=== PATIENT | female | born 1965 | race Caucasian/White ===

== ENCOUNTER 2021-08-05 14:39 | Emergency (ER) | payer OTHER, SELFPAY ==
[2021-08-05] VITALS (8 sets, daily range): BP systolic 135–172; BP diastolic 83–111; PULSE 77–88; RESP 18–23; TEMP 36.7–36.8; O2SAT 96–100; BMI 28.3
--- NOTE | 2021-08-05 14:45 | ECG_ITS ---
[facility] Test Date: 2021-08-05 Pat Name: Rose Marie Saunders Department: Room: Gender: Female Tester Operator: : 1965 Requested By: Sergei Stahl Order Number: [id number] Rebeca MD: Stu Mendez M.D. Measurements Intervals [place] Rate: 84 P: 38 AL: 158 QRS: 11 QRSD: 86 T: 1 QT: 390 QTc: 463 Interpretive Statements SINUS RHYTHM No previous ECG available for comparison Electronically Signed On 08-05-2021 19:26:10 CDT by Stu Mendez M.D. [id number]
--- NOTE | 2021-08-05 14:45 | XRR_ITS ---
PROCEDURE INFORMATION: Exam: XR Chest Exam date and time: 08/05/2021 3:13 PM Age: 55 years old Clinical indication: Pain; Chest pressure; Additional info: Chest pain TECHNIQUE: Imaging protocol: XR of the chest. Views: 1 view. COMPARISON: No relevant prior studies available. FINDINGS: Lungs: Unremarkable. No consolidation. Pleural spaces: Unremarkable. No pleural effusion. No pneumothorax. Heart/Mediastinum: Unremarkable. No cardiomegaly. Bones/joints: Unremarkable. XR/XR chest 1V portable [id number] IMPRESSION: No acute findings.
[2021-08-05] MEDS: aspirin 81 mg Chew Tablet 324 MG PO (14:50)
[2021-08-05] MEDS: fentaNYL 50 mcg/mL INJ 2mL IVP (14:56)
[2021-08-05] MEDS: famotidine 20 mg/2 mL INJ IVP (14:56)
--- NOTE | 2021-08-05 14:56 | ED_ITS ---
Documented by User: Sergei Stahl DO 08/05/21 15:00 HPI - Chest Pain General: Chief Complaint: Chest Pain Stated Complaint: chest pain Time Seen by Provider: 08/05/21 14:44 History of Present Illness: 55-year-old female presents with epigastric/lower chest pain that radiates from the right to left ribs across the whole epigastric region. She reports that started about 2 hours ago. That took her an hour to drive and here is what white just 1 to be seen. She has some mild nausea no vomiting. No diaphoresis no radiation of the pain. It is kind of a sharp stabbing crampy pain. Nothing seems to make it worse or better. Is persistent. Associated symptoms: Reports abdominal pain and nausea; Deny dyspnea, fever(s), palpitations or vomiting Review of Systems Const: Denies: fever(s) or chills Card: Reports: chest pain; Denies: palpitations, irregular heart rhythm or lightheadedness Resp: Denies: dyspnea, productive cough or non-productive cough GI: Reports: abdominal pain and nausea; Denies: vomiting, diarrhea or constipation Musc: Denies: neck pain or back pain Skin/Breast: Denies: rash Neuro: Denies: headache(s) or numbness in extremities Psych: Denies: anxiety or depression Physical Exam Const: COMMON NORMALS: patient oriented x3 GENERAL APPEARANCE: well kempt and other (Uncomfortable) HENMT: COMMON NORMALS: normocephalic and moist oral mucous membranes HEAD & SCALP: normocephalic Neck/C-Spine: COMMON NORMALS: full ROM, supple and no JVD Resp: COMMON NORMALS: normal respiratory effort, No retractions, No use of accessory muscles and clear to auscultation bilaterally AUSCULTATION: clear to auscultation bilaterally Cardio: COMMON NORMALS: no JVD, regular rate, regular rhythm and Peripheral pulses 2+ throughout RATE: regular rate RHYTHM: regular rhythm PERIPHERAL PULSES: Peripheral pulses 2+ throughout GI: COMMON NORMALS: Soft to palpation PALPATION: Yes Soft to palpation and Yes Tenderness to palpation present (GI) (Epigastric) : COMMON NORMALS: Yes no CVA tenderness BLADDER/KIDNEY EXAM: Yes no CVA tenderness Back/Pelvis: COMMON NORMALS: no CVA tenderness Extremity: COMMON NORMALS: normal to inspection and full ROM Neuro: COMMON NORMALS: patient oriented x3, CN's II-XII intact bilaterally and no focal motor deficits Psych: COMMON NORMALS: mental status grossly normal, cooperative and normal affect APPEARANCE: Yes well kempt Skin: COMMON NORMALS: no rashes or lesions noted GENERAL SKIN EXAM: no rashes or lesions noted Course Vital Signs: Vital signs: Vital Signs Temperature 98.1 F 08/05/21 19:08 Pulse Rate 88 08/05/21 19:08 Respiratory Rate 18 08/05/21 19:08 Blood Pressure 164/111 08/05/21 19:08 Pulse Oximetry 96 08/05/21 19:08 MDM - Chest Pain Lab Data : 08/05/21 15:00 08/05/21 15:00 Radiology Impressions Chest X-Ray 08/05/21 14:45 IMPRESSION: No acute findings. Abdomen Ultrasound 08/05/21 16:17 IMPRESSION: Mild fatty infiltration of the liver. Laboratory Results WBC 11.2 10^3/uL (4.0-10.0) H 08/05/21 15:00 RBC 4.74 10^6/uL (4.1-5.3) 08/05/21 15:00 Hgb 13.9 g/dL (11.5-15.3) 08/05/21 15:00 Hct 43.0 % (37.0-47.0) 08/05/21 15:00 MCV 90.7 fl (81-99) 08/05/21 15:00 MCH 29.3 pg (28.0-34.0) 08/05/21 15:00 MCHC 32.3 g/dL (30.0-36.0) 08/05/21 15:00 RDW 12.7 % (12.1-15.1) 08/05/21 15:00 Plt Count 245 10^3/cmm (130-400) 08/05/21 15:00 MPV 11.4 fL (7.4-10.4) H 08/05/21 15:00 Neut % (Auto) 73.8 % 08/05/21 15:00 Lymph % (Auto) 18.5 % 08/05/21 15:00 Mayes % (Auto) 5.6 % 08/05/21 15:00 Eos % (Auto) 1.3 % 08/05/21 15:00 Baso % (Auto) 0.4 % 08/05/21 15:00 Neut # (Auto) 8.25 10^3/uL (1.8-7.7) H 08/05/21 15:00 Lymph # (Auto) 2.1 10^3/uL (0.8-4.8) 08/05/21 15:00 Mayes # (Auto) 0.6 10^3/uL (0.2-0.9) 08/05/21 15:00 Eos # (Auto) 0.2 10^3/uL (0.0-0.8) 08/05/21 15:00 Baso # (Auto) 0.0 10^3/uL (0.0-0.1) 08/05/21 15:00 Nucleated RBC % (auto) 0 % 08/05/21 15:00 Nucleated RBCs # 0.0 /100WBC 08/05/21 15:00 Sodium 139 mmol/L (136-145) 08/05/21 15:00 Potassium 3.5 mmol/L (3.5-5.1) 08/05/21 15:00 Chloride 101 mmol/L (98-107) 08/05/21 15:00 Carbon Dioxide 21 mmol/L (22-29) L 08/05/21 15:00 Anion Gap 20.5 (5-19) H 08/05/21 15:00 BUN 11 mg/dL (6-20) 08/05/21 15:00 Creatinine 0.7 mg/dL (0.5-0.9) 08/05/21 15:00 GFR Calculation 86.2 mL/min (90-130) L 08/05/21 15:00 Glucose 121 mg/dL (65-115) H 08/05/21 15:00 Calculated Osmolality 289 mOsm/kg (285-295) 08/05/21 15:00 Calcium 9.2 mg/dL (8.5-10.5) 08/05/21 15:00 Total Bilirubin 0.9 mg/dL (0.15-1.2) 08/05/21 15:00 AST 86 U/L (0-32) H 08/05/21 15:00 ALT 70 U/L (0-33) H 08/05/21 15:00 Alkaline Phosphatase 116 IU/L (35-105) H 08/05/21 15:00 Troponin T Baseline 6 ng/L (0-10) 08/05/21 15:00 Troponin T 120 Minute 6.00 ng/L (0-10) 08/05/21 17:30 Delta Troponin T 0 ABS# (0-10) 08/05/21 17:30 Total Protein 7.7 g/dL (6.6-8.7) 08/05/21 15:00 Albumin 4.7 g/dL (3.5-5.2) 08/05/21 15:00 Globulin 3.0 g/dL (1.3-4.6) 08/05/21 15:00 Lipase 55 U/L (13-60) 08/05/21 15:00 Discharge Plan Discharge Patient Disposition: Home Clinical Impression: Abdominal pain, epigastric Condition: Stable Prescriptions: New Prevacid 30 mg capsule,delayed release(DR/EC) 30 mg PO DAILY Qty: 30 0RF No Action aspirin 81 mg Tablet,Chewable 81 mg PO DAILY 0RF Discharge Orders: Discharge ED (Routine); Ordered 08/05/21 Ordered By: Jarek Grajeda Patient Instructions: Abdominal Pain (ED) Activity Restrictions/Additional Instructions: Return for worsening pain despite treatment, vomiting liquids or medications, worsening shortness of breath, other concerning symptoms. Follow-up with your doctor, as they may wish to run other outpatient tests. Coding Level of Care Code ED Insurance Account Executive for Chg Fwd Exam Comprehensive Documented by User: Jarek Grajeda DO 08/05/21 19:21 HPI - Chest Pain General: Chief Complaint: Chest Pain Stated Complaint: chest pain Time Seen by Provider: 08/05/21 14:44 Course Vital Signs: Vital signs: Vital Signs Temperature 98.1 F 08/05/21 19:08 Pulse Rate 88 08/05/21 19:08 Respiratory Rate 18 08/05/21 19:08 Blood Pressure 164/111 08/05/21 19:08 Pulse Oximetry 96 08/05/21 19:08 [facility] - Chest Pain Medical Decision Making 50-year-old female checked out to me at shift change by Dr. Stahl. This lady has epigastric/lower chest pain. She continues to have some pain despite GI cocktail. Her white blood cell count is 11.2. Her BMP is normal. Her liver enzymes are minimally elevated. Her troponin is 6. She has 2 completely normal EKGs. Her 2-hour delta is 0. Her chest x-ray is normal. Her gallbladder ultrasound is normal including a normal-appearing pancreas and no dilated ducts. She is nontachycardic. Saturations are 100% on room air. She will be allowed discharge. Outpatient follow-up. Lab Data : 08/05/21 15:00 08/05/21 15:00 Radiology Impressions Chest X-Ray 08/05/21 14:45 IMPRESSION: No acute findings. Abdomen Ultrasound 08/05/21 16:17 IMPRESSION: Mild fatty infiltration of the liver. Laboratory Results WBC 11.2 10^3/uL (4.0-10.0) H 08/05/21 15:00 RBC 4.74 10^6/uL (4.1-5.3) 08/05/21 15:00 Hgb 13.9 g/dL (11.5-15.3) 08/05/21 15:00 Hct 43.0 % (37.0-47.0) 08/05/21 15:00 MCV 90.7 fl (81-99) 08/05/21 15:00 MCH 29.3 pg (28.0-34.0) 08/05/21 15:00 MCHC 32.3 g/dL (30.0-36.0) 08/05/21 15:00 RDW 12.7 % (12.1-15.1) 08/05/21 15:00 Plt Count 245 10^3/cmm (130-400) 08/05/21 15:00 MPV 11.4 fL (7.4-10.4) H 08/05/21 15:00 Neut % (Auto) 73.8 % 08/05/21 15:00 Lymph % (Auto) 18.5 % 08/05/21 15:00 Mayes % (Auto) 5.6 % 08/05/21 15:00 Eos % (Auto) 1.3 % 08/05/21 15:00 Baso % (Auto) 0.4 % 08/05/21 15:00 Neut # (Auto) 8.25 10^3/uL (1.8-7.7) H 08/05/21 15:00 Lymph # (Auto) 2.1 10^3/uL (0.8-4.8) 08/05/21 15:00 Mayes # (Auto) 0.6 10^3/uL (0.2-0.9) 08/05/21 15:00 Eos # (Auto) 0.2 10^3/uL (0.0-0.8) 08/05/21 15:00 Baso # (Auto) 0.0 10^3/uL (0.0-0.1) 08/05/21 15:00 Nucleated RBC % (auto) 0 % 08/05/21 15:00 Nucleated RBCs # 0.0 /100WBC 08/05/21 15:00 Sodium 139 mmol/L (136-145) 08/05/21 15:00 Potassium 3.5 mmol/L (3.5-5.1) 08/05/21 15:00 Chloride 101 mmol/L (98-107) 08/05/21 15:00 Carbon Dioxide 21 mmol/L (22-29) L 08/05/21 15:00 Anion Gap 20.5 (5-19) H 08/05/21 15:00 BUN 11 mg/dL (6-20) 08/05/21 15:00 Creatinine 0.7 mg/dL (0.5-0.9) 08/05/21 15:00 GFR Calculation 86.2 mL/min (90-130) L 08/05/21 15:00 Glucose 121 mg/dL (65-115) H 08/05/21 15:00 Calculated Osmolality 289 mOsm/kg (285-295) 08/05/21 15:00 Calcium 9.2 mg/dL (8.5-10.5) 08/05/21 15:00 Total Bilirubin 0.9 mg/dL (0.15-1.2) 08/05/21 15:00 AST 86 U/L (0-32) H 08/05/21 15:00 ALT 70 U/L (0-33) H 08/05/21 15:00 Alkaline Phosphatase 116 IU/L (35-105) H 08/05/21 15:00 Troponin T Baseline 6 ng/L (0-10) 08/05/21 15:00 Troponin T 120 Minute 6.00 ng/L (0-10) 08/05/21 17:30 Delta Troponin T 0 ABS# (0-10) 08/05/21 17:30 Total Protein 7.7 g/dL (6.6-8.7) 08/05/21 15:00 Albumin 4.7 g/dL (3.5-5.2) 08/05/21 15:00 Globulin 3.0 g/dL (1.3-4.6) 08/05/21 15:00 Lipase 55 U/L (13-60) 08/05/21 15:00 Discharge Plan Discharge Patient Disposition: Home Clinical Impression: Abdominal pain, epigastric Condition: Stable Prescriptions: New Prevacid 30 mg capsule,delayed release(DR/EC) 30 mg PO DAILY Qty: 30 0RF No Action aspirin 81 mg Tablet,Chewable 81 mg PO DAILY 0RF Discharge Orders: Discharge ED (Routine); Ordered 08/05/21 Ordered By: Jarek Grajeda Patient Instructions: Abdominal Pain (ED) Activity Restrictions/Additional Instructions: Return for worsening pain despite treatment, vomiting liquids or medications, worsening shortness of breath, other concerning symptoms. Follow-up with your doctor, as they may wish to run other outpatient tests. Coding Level of Care Code ED Insurance Account Executive for Misti Fwd Exam Comprehensive
[2021-08-05 15:10] LABS: Basophils % 0.4 %; Eosinophils # 0.2 10^3/uL (0.0-0.8); Eosinophils % 1.3 %; Hemoglobin 13.9 g/dL (11.5-15.3); Lymphocytes # 2.1 10^3/uL (0.8-4.8); Lymphocytes % 18.5 %; Mean Corpuscular HGB Conc 32.3 g/dL (30.0-36.0); Mean Corpuscular Hemoglobin 29.3 pg (28.0-34.0); Mean Corpuscular Volume 90.7 fl (81-99); Mean Platelet Volume 11.4 fL (7.4-10.4); Monocytes # 0.6 10^3/uL (0.2-0.9); Monocytes % 5.6 %; Neutrophils # 8.25 10^3/uL (1.8-7.7); Neutrophils % 73.8 %; Nucleated Red Blood Cells % 0 %; Platelet Count 245 10^3/cmm (130-400); Red Blood Count 4.74 10^6/uL (4.1-5.3); Red Cell Distribution Width 12.7 % (12.1-15.1); White Blood Count 11.2 10^3/uL (4.0-10.0)
[2021-08-05 15:36] LABS: Troponin(5th) Baseline 6 ng/L (0-10)
[2021-08-05 15:56] LABS: Alanine Aminotransferase 70 U/L (0-33); Albumin Level 4.7 g/dL (3.5-5.2); Alkaline Phosphatase 116 IU/L (35-105); Aspartate Amino Transferase 86 U/L (0-32); Blood Urea Nitrogen 11 mg/dL (6-20); Calcium 9.2 mg/dL (8.5-10.5); Carbon Dioxide 21 mmol/L (22-29); Chloride 101 mmol/L (98-107); Glomerular Filtration Rate 86.2 mL/min (90-130); Glucose 121 mg/dL (65-115); Lipase 55 U/L (13-60); Osmolality Calculated 289 mOsm/kg (285-295); Sodium 139 mmol/L (136-145); Total Bilirubin 0.9 mg/dL (0.15-1.2); Total Protein 7.7 g/dL (6.6-8.7)
[2021-08-05 16:00] LABS: Anion Gap 20.5 (5-19); Potassium 3.5 mmol/L (3.5-5.1)
--- NOTE | 2021-08-05 16:17 | USR_ITS ---
PROCEDURE INFORMATION: Exam: US Abdomen, Limited; Right Upper Quadrant Exam date and time: 08/05/2021 4:28 PM Age: 55 years old Clinical indication: Other: Chest pain; Additional info: Gallbladder TECHNIQUE: Imaging protocol: US abdomen. Real time ultrasound with image documentation. Limited exam focused on the right upper quadrant. COMPARISON: No relevant prior studies available. FINDINGS: Liver: Mildly increased echotexture in the liver, consistent with mild fatty infiltration. Gallbladder: The gallbladder is unremarkable. No gallstones or intraluminal sludge. No gallbladder wall thickening. No pericholecystic fluid. Sonographic Mayer's sign is negative per report from the photo technologist. Common bile duct: Unremarkable as visualized. No stones. No dilatation. Pancreas: The pancreas is unremarkable. No pancreatic ductal dilatation. Right kidney: The right kidney is unremarkable. Aorta: Visualized aorta is unremarkable. Portal venous: Hepatopetal flow in the portal vein. Inferior vena cava: Visualized IVC is unremarkable. Intraperitoneal space: No ascites. US/US abdomen limited [id number] IMPRESSION: Mild fatty infiltration of the liver.
--- NOTE | 2021-08-05 16:45 | ECG_ITS ---
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 Measurements Intervals [place] Rate: 83 P: 64 [place]: 157 QRS: 39 QRSD: 82 T: 23 QT: 378 QTc: 447 Interpretive Statements SINUS RHYTHM Compared to ECG 08/05/2021 14:49:37 No significant changes Electronically Signed On 08-05-2021 19:31:46 CDT by Stu Mendez M.D. [id number]
[2021-08-05] MEDS: lidocaine 2% viscous 15 ML, aluminum-mag hydrox-simethicon 30 ML, sucralfate oral liq 1 GM PO (17:24)
[2021-08-05] MEDS: ketorolac 30 mg/mL INJ 15 MG IVP (17:43)
--- NOTE | 2021-08-05 18:08 | PC.HD ---
EKG done, troponin pending.
[2021-08-05 18:28] LABS: Troponin 5 2HR Delta 0 ABS# (0-10)
[2021-08-05] MEDS: ondansetron 2 mg/ML SDV 2 mL 4 MG IVP (19:01)
[2021-08-05] MEDS: morphine 4 mg/mL SDV 1 mL IVP (19:01)
--- NOTE | 2021-08-09 14:45 | DCPLANNER ---
hospice case manager had message to speak with patient about getting established with a primary care physician. hospice case manager spoke with patient, she stated that she would like to be established at the [facility]. hospice case manager called the [facility], was told that the best thing for patient to do is to go the walk in clinic, anytime from 9:00 - 12:30 and 2:00 to 5:00 Friday thru Friday as a walk in for a hospital follow up that patient can be seen and then put on the physicians established care list. hospice case manager called patient and informed patient of this.
== END 2021-08-05 19:27 | disposition home or self-care (01) ==
PROVIDERS: Student in an Organized Health Care Education/Training Program; Emergency Provider Emergency Medicine
DX: R10.13 Epigastric pain (principal); Z79.82 Long term (current) use of aspirin
CPT/HCPCS: 71045; 76705; 80053; 83690; 84484; 85025; 93005; 96374; 96375; 99284; J1885; J2270; J2405; J3010; J3490

== ENCOUNTER 2022-07-23 11:41 | Emergency (ER) | payer OTHER, SELFPAY ==
[2022-07-23 11:47] VITALS: BP 161/81; PULSE 85; RESP 16; TEMP 36.7; O2SAT 98
--- NOTE | 2022-07-23 12:03 | XR_ITS ---
WS: [id number] EXAMINATION: XR chest 1V portable [id number] REASON FOR EXAM: dizziness COMPARISON: 08/05/2021 ORDER DATE: 07/23/2022 12:11 PM TECHNIQUE: A single, portable frontal chest x-ray was obtained. X-RAY FINDINGS: The lungs are clear. Pleural spaces are clear. No pleural effusions or pneumothorax. Cardiomediastinal silhouette is normal. No evidence for pulmonary edema. Soft tissue and osseous structures are unremarkable. No tubes or lines are present. XR/XR chest 1V portable [id number] IMPRESSION: Unremarkable frontal portable chest x-ray.
--- NOTE | 2022-07-23 12:03 | CT_ITS ---
WS: [id number] CT HEAD TECHNIQUE: Noncontrast CT of the head obtained from the skullbase to the vertex. CLINICAL INFORMATION: Dizziness and balance issues COMPARISON: None. DLP: 986.[address] scans at [facility] use at least one of these dose optimization techniques: automated e xposure control; mA and/or kV adjustment per patient size (includes targeted exams where dose is matc hed to clinical indication); or iterative reconstruction. FINDINGS: No evidence of intracranial hemorrhage or mass effect. Ventricular system and basal cisterns are perez nt. Mild small vessel changes with mild parenchymal volume loss. No extra-axial fluid collections. No evidence of mass or mass effect. Normal zamora-white differentiation. Paranasal sinuses and mastoid air cells are well aerated. .Normal visualized soft tissues. CT/CT head wo con* [id number] IMPRESSION: 1. No evidence of intracranial hemorrhage or mass effect. 2. Mild small vessel changes. Mild parenchymal volume loss. 3. No acute intracranial findings.
--- NOTE | 2022-07-23 12:23 | ED_ITS ---
Documented by User: DAI Trent 07/24/22 22:22 HPI - Dizziness General: Chief Complaint: Dizziness Stated Complaint: Dizziness, N/V Time Seen by Provider: 07/23/22 12:03 History of Present Illness: HPI Narrative: Patient is a 56-year-old female comes to the ED with dizziness. Patient said 2 days ago she had an episode when she was doing her hair she felt like she lost her balance and the floor and sink were moving upwards. She denies falling or hitting her head at that time. Symptoms went away after a few minutes and she felt fine the rest of the day. Yesterday she woke up and was having a lot more dizziness. She describes it as feeling more off balance, rather than room spinning. Symptoms worsen when she turns her head to the left or left to the left. She had episodes of nausea and vomiting. Any quick movements made symptoms worse as well. Denies any chest pain, shortness of breath or palpitations. Patient did endorse having some tingling sensation throughout her extremities bilaterally but states she was starting to hyperventilate a little bit before the symptoms started. Denies any past similar episodes. No history of strokes. Denies any recent medication changes and patient just takes a daily aspirin. Associated symptoms: Denies chest pain, chills, headache(s), nausea, nasal congestion, palpitations or vomiting Associated neuro symptoms: Deny numbness in extremities Review of Systems Const: Denies: fever(s), chills or fatigue Eyes: Denies: change in vision or eye discomfort ENMT: Denies: throat pain, odynophagia, nasal discharge or nasal congestion Card: Denies: chest pain, palpitations, edema, swelling of feet/ankles, dyspnea on exertion or orthopnea Resp: Denies: dyspnea, productive cough or non-productive cough GI: Denies: abdominal pain, nausea, vomiting, diarrhea, constipation or hemato chezia : Denies: flank pain, dysuria or hematuria Musc: Denies: neck pain, back pain or extremity swelling Skin/Breast: Denies: rash or new lesions Neuro: Reports: dizziness and vertigo; Denies: headache(s), numbness in extremities or weakness in extremities PFS ED PFSH: Medical History (Updated 07/23/22 @ 14:26 by DAI Trent) No pertinent past medical history Surgical History (Updated 07/23/22 @ 12:34 by DAI Trent) No pertinent past surgical history Physical Exam Const: COMMON NORMALS: patient oriented x3 HENMT: COMMON NORMALS: normocephalic HEAD & SCALP: normocephalic MOUTH: Normal oral and palatal mucosa present THROAT: posterior oropharynx normal and uvula midline Eye: COMMON NORMALS: Equal, round and reactive pupils present and EOMs intact bilaterally GENERAL EYE: appearance normal, both eyes and all related structures PUPIL: Yes Equal, round and reactive pupils present Neck/C-Spine: COMMON NORMALS: supple GENERAL: Yes normal visual inspection Lymph: LYMPHATIC: no lymphadenopathy noted Resp: COMMON NORMALS: normal respiratory effort, No retractions, No use of a ccessory muscles and clear to auscultation bilaterally AUSCULTATION: clear to auscultation bilaterally Cardio: COMMON NORMALS: regular rate, regular rhythm, S1 normal heart sound present, S2 normal heart sound present, No gallops present (Cardio), No clicks present (Cardio), No murmurs present (Cardio) and Peripheral pulses 2+ throughout RATE: regular rate RHYTHM: regular rhythm HEART SOUNDS: S1 normal heart sound present and S2 normal heart sound present PERIPHERAL PULSES: Peripheral pulses 2+ throughout GI: COMMON NORMALS: Normal to inspection, nondistended, normoactive bowel sounds present, Soft to palpation, non-tender and no masses PALPATION: Yes Soft to palpation : COMMON NORMALS: Yes no CVA tenderness BLADDER/KIDNEY EXAM: Yes no CVA tenderness Back/Pelvis: COMMON NORMALS: no CVA tenderness Extremity: GENERAL: Yes normal exam except as noted Neuro: COMMON NORMALS: patient oriented x3, CN's II-XII intact bilaterally, moves all extremities, no focal motor deficits and no sensory deficits noted SENSORY EXAM: Yes extremities (intact) MOTOR EXAM: 5/5 motor strength present throughout Skin: COMMON NORMALS: no rashes or lesions noted GENERAL SKIN EXAM: no rashes or lesions noted and dry skin Course Vital Signs: Vital signs: Vital Signs Temperature 98.1 F 07/23/22 11:47 Pulse Rate 79 07/23/22 14:34 Respiratory Rate 23 H 07/23/22 12:33 Blood Pressure 144/90 07/23/22 14:34 Pulse Oximetry 96 07/23/22 14:34 Oxygen Delivery Me thod Room Air 07/23/22 13:30 MDM - Dizziness Medical Decision Making Patient is a 56-year-old female comes to the ED with dizziness. Patient said 2 days ago she had an episode when she was doing her hair she felt like she lost her balance and the floor and sink were moving upwards. She denies falling or hitting her head at that time. Symptoms went away after a few minutes and she felt fine the rest of the day. Yesterday she woke up and was having a lot more dizziness. She describes it as feeling more off balance, rather than room spinning. Symptoms worsen when she turns her head to the left or left to the left. She had episodes of nausea and vomiting. Any quick movements made symptoms worse as well. Denies any chest pain, shortness of breath or palpitations. Patient did endorse having some tingling sensation throughout her extremities bilaterally but states she was starting to hyperventilate a little bit before the symptoms started. Denies any past similar episodes. No history of strokes. Denies any recent medication changes and patient just takes a daily aspirin. Vitals are stable. Exam is benign and neuro exam shows no deficits. Troponin negative. EKG showed normal sinus rhythm with no ST segment elevation or depression seen. CBC and CMP are unremarkable. Chest x-ray shows no acute findings and head CT shows no acute findings. Given patient's history and exam findings symptoms is likely due to BPPV. She was stable for discharge home and sent home with exercise instructions to manage BPPV. She is also on with a prescription for meclizine help with dizziness. Follow-up with PCP in the next week for reevaluation. Patient understood agree with plan. Dr. Reeves reviewed case and agreed with plan as well. Lab Data I reviewed the patient's lab results. 07/23/22 12:22 07/23/22 12:22 Radiology Impressions Chest X-Ray 07/23/22 12:03 IMPRESSION: Unremarkable frontal portable chest x-ray. Head CT 07/23/22 12:03 IMPRESSION: 1. No evidence of intracranial hemorrhage or mass effect. 2. Mild small vessel changes. Mild parenchymal volume loss. 3. No acute intracranial findings. Laboratory Results WBC 9.6 10^3/uL (4.0-10.0) 07/23/22 12:22 RBC 4.81 10^6/uL (4.1-5.3) 07/23/22 12: Hgb 14.3 g/dL (11.5-15.3) 07/23/22 12:22 Hct 44.2 % (37.0-47.0) 07/23/22 12:22 MCV 91.9 fl (81-99) 07/23/22 12:22 MCH 29.7 pg (28.0-34.0) 07/23/22 12: MCHC 32.4 g/dL (30.0-36.0) 07/23/22 12: RDW 13.1 % (12.1-15.1) 07/23/22 12:22 Plt Count 241 10^3/cmm (130-400) 07/23/22 12: MPV 11.1 fL (7.4-10.4) H 07/23/22 12: Neut % (Auto) 78.8 % 07/23/22 12: Lymph % (Auto) 16.1 % 07/23/22 12: Bath % (Auto) 4.3 % 07/23/22 12:22 Eos % (Auto) 0.3 % 07/23/22 12: Baso % (Auto) 0.2 % 07/23/22 12: Neut # (Auto) 7.56 10^3/uL (1.8-7.7) 07/23/22 12: Lymph # (Auto) 1.5 10^3/uL (0.8-4.8) 07/23/22 12: Bath # (Auto) 0.4 10^3/uL (0.2-0.9) 07/23/22 12:22 Eos # (Auto) 0.0 10^3/uL (0.0-0.8) 07/23/22 12: Baso # (Auto) 0.0 10^3/uL (0.0-0.1) 07/23/22 12: Nucleated RBC % (auto) 0 % 07/23/22 12: Nucleated RBCs # 0.0 /100WBC 07/23/22 12:22 Sodium 139 mmol/L (136-145) 07/23/22 12:22 Potassium 4.3 mmol/L (3.5-5.1) 07/23/22 12:22 Chloride 104 mmol/L (98-107) 07/23/22 12:22 Carbon Dioxide 23 mmol/L (22-29) 07/23/22 12:22 Anion Gap 16.3 (5-19) 07/23/22 12:22 BUN 10 mg/dL (6-20) 07/23/22 12:22 Creatinine 0.6 mg/dL (0.5-0.9) 07/23/22 12:22 GFR Calculation 102.7 mL/min (90-130) 07/23/22 12:22 Glucose 106 mg/dL (65-115) 07/23/22 12:22 POC Glucose 111 mg/dL (70-110) H 07/23/22 12:22 Calculated Osmolality 287 mOsm/kg (285-295) 07/23/22 12:22 Calcium 9.3 mg/dL (8.5-10.5) 07/23/22 12:22 Total Bilirubin 0.4 mg/dL (0.15-1.2) 07/23/22 12:22 AST 23 U/L (0-32) 07/23/22 12:22 ALT 35 U/L (0-33) H 07/23/22 12:22 Alkaline Phosphatase 78 U/L (35-105) 07/23/22 12:22 Troponin T Baseline 6 ng/L (0-10) 07/23/22 12:22 NT-Pro-B Natriuret Pep 90 pg/mL (0-125) 07/23/22 12:22 Total Protein 8.1 g/dL (6.6-8.7) 07/23/22 12:22 Albumin 4.2 g/dL (3.5-5.2) 07/23/22 12:22 Globulin 3.9 g/dL (1.3-4.6) 07/23/22 12:22 EKG Data EKG 1: EKG interpretation date: 07/23/22 Interpretation: Sinus rhythm, 76 bpm, no ST segment elevation or depression seen. Discharge Plan Discharge Patient Disposition: Home Clinical Impression: Benign paroxysmal positional vertigo Qualifiers: Laterality: unspecified laterality Qualified Code(s): H81.10 - Benign paroxysmal vertigo, unspecified ear Condition: Stable Prescriptions: New meclizine 25 mg tablet 25 mg PO BID PRN (Reason: dizziness) Qty: 20 0RF No Action aspirin 81 mg Tablet,Chewable 81 mg PO DAILY multivitamin Tablet 1 tab PO DAILY Discharge Orders: Discharge ED (Routine); Ordered 07/23/22 Ordered By: Brock Ford Discharge Diet: Regular Discharge Activity: Increase activity as tolerated Patient Instructions: Benign Paroxysmal Positional Vertigo (DC) Activity Restrictions/Additional Instructions: Follow-up with medical provider as directed in the next 5 to 7 days for reevaluation. Take medications as prescribed. Return to the ER or your medical provider if condition worsens. Please read and understand discharge instructions. Thank you for choosing [facility] for your healthcare needs today. Please realize this is an emergency room and that we are providing you with a medical screening exam and this may not be complete and all inclusive of all the testing and or work up that you may need to determine your ailment or severity of your illness. It is very important that you follow up as instructed or that you return to the Emergency Department should you have concerns or if your condition changes or worsens in any way. Coding Level of Care Code ED Blasting Coal Miner for Chg Fwd Documented by User: Suresh Law DO 07/25/22 06:09 HPI - Dizziness General: Chief Complaint: Dizziness Stated Complaint: Dizziness, N/V Time Seen by Provider: 07/23/22 12:03 [facility] ED PFSH: Medical History (Updated 07/23/22 @ 14:26 by DAI Trent) No pertinent past medical history Surgical History (Updated 07/23/22 @ 12:34 by DAI Trent) No pertinent past surgical history Course Vital Signs: Vital signs: Vital Signs Temperature 98.1 F 07/23/22 11:47 Pulse Rate 79 07/23/22 14:34 Respiratory Rate 23 H 07/23/22 12:33 Blood Pressure 144/90 07/23/22 14:34 Pulse Oximetry 96 07/23/22 14:34 Oxygen Delivery Me thod Room Air 07/23/22 13:30 MDM - Dizziness Medical Decision Making Patient is a 56-year-old female comes to the ED with dizziness. Patient said 2 days ago she had an episode when she was doing her hair she felt like she lost her balance and the floor and sink were moving upwards. She denies falling or hitting her head at that time. Symptoms went away after a few minutes and she felt fine the rest of the day. Yesterday she woke up and was having a lot more dizziness. She describes it as feeling more off balance, rather than room spinning. Symptoms worsen when she turns her head to the left or left to the left. She had episodes of nausea and vomiting. Any quick movements made symptoms worse as well. Denies any chest pain, shortness of breath or palpitations. Patient did endorse having some tingling sensation throughout her extremities bilaterally but states she was starting to hyperventilate a little bit before the symptoms started. Denies any past similar episodes. No history of strokes. Denies any recent medication changes and patient just takes a daily aspirin. Vitals are stable. Exam is benign and neuro exam shows no deficits. Troponin negative. EKG showed normal sinus rhythm with no ST segment elevation or depression seen. CBC and CMP are unremarkable. Chest x-ray shows no acute findings and head CT shows no acute findings. Given patient's history and exam findings symptoms is likely due to BPPV. She was stable for discharge home and sent home with exercise instructions to manage BPPV. She is also on with a prescription for meclizine help with dizziness. Follow-up with PCP in the next week for reevaluation. Patient understood agree with plan. Dr. Reeves re viewed case and agreed with plan as well. Chart reviewed and patient discussed with midlevel. Agree with assessment and plan. Lab Data 07/23/22 12:22 07/23/22 12:22 Radiology Impressions Chest X-Ray 07/23/22 12:03 IMPRESSION: Unremarkable frontal portable chest x-ray. Head CT 07/23/22 12:03 IMPRESSION: 1. No evidence of intracranial hemorrhage or mass effect. 2. Mild small vessel changes. Mild parenchymal volume loss. 3. No acute intracranial findings. Laboratory Results WBC 9.6 10^3/uL (4.0-10.0) 07/23/22 12:22 RBC 4.81 10^6/uL (4.1-5.3) 07/23/22 12: Hgb 14.3 g/dL (11.5-15.3) 07/23/22 12:22 Hct 44.2 % (37.0-47.0) 07/23/22 12:22 MCV 91.9 fl (81-99) 07/23/22 12:22 MCH 29.7 pg (28.0-34.0) 07/23/22 12: MCHC 32.4 g/dL (30.0-36.0) 07/23/22 12: RDW 13.1 % (12.1-15.1) 07/23/22 12: Plt Count 241 10^3/cmm (130-400) 07/23/22 12: MPV 11.1 fL (7.4-10.4) H 07/23/22 12: Neut % (Auto) 78.8 % 07/23/22 12: Lymph % (Auto) 16.1 % 07/23/22 12: Bath % (Auto) 4.3 % 07/23/22 12:22 Eos % (Auto) 0.3 % 07/23/22 12: Baso % (Auto) 0.2 % 07/23/22 12: Neut # (Auto) 7.56 10^3/uL (1.8-7.7) 07/23/22 12: Lymph # (Auto) 1.5 10^3/uL (0.8-4.8) 07/23/22 12: Bath # (Auto) 0.4 10^3/uL (0.2-0.9) 07/23/22 12:22 Eos # (Auto) 0.0 10^3/uL (0.0-0.8) 07/23/22 12: Baso # (Auto) 0.0 10^3/uL (0.0-0.1) 07/23/22 12: Nucleated RBC % (auto) 0 % 07/23/22 12: Nucleated RBCs # 0.0 /100WBC 07/23/22 12:22 Sodium 139 mmol/L (136-145) 07/23/22 12:22 Potassium 4.3 mmol/L (3.5-5.1) 07/23/22 12:22 Chloride 104 mmol/L (98-107) 07/23/22 12:22 Carbon Dioxide 23 mmol/L (22-29) 07/23/22 12:22 Anion Gap 16.3 (5-19) 07/23/22 12:22 BUN 10 mg/dL (6-20) 07/23/22 12:22 Creatinine 0.6 mg/dL (0.5-0.9) 07/23/22 12:22 GFR Calculation 102.7 mL/min (90-130) 07/23/22 12:22 Glucose 106 mg/dL (65-115) 07/23/22 12:22 POC Glucose 111 mg/dL (70-110) H 07/23/22 12:22 Calculated Osmolality 287 mOsm/kg (285-295) 07/23/22 12:22 Calcium 9.3 mg/dL (8.5-10.5) 07/23/22 12:22 Total Bilirubin 0.4 mg/dL (0.15-1.2) 07/23/22 12:22 AST 23 U/L (0-32) 07/23/22 12:22 ALT 35 U/L (0-33) H 07/23/22 12:22 Alkaline Phosphatase 78 U/L (35-105) 07/23/22 12:22 Troponin T Baseline 6 ng/L (0-10) 07/23/22 12:22 NT-Pro-B Natriuret Pep 90 pg/mL (0-125) 07/23/22 12:22 Total Protein 8.1 g/dL (6.6-8.7) 07/23/22 12:22 Albumin 4.2 g/dL (3.5-5.2) 07/23/22 12:22 Globulin 3.9 g/dL (1.3-4.6) 07/23/22 12:22 Discharge Plan Discharge Patient Disposition: Home Clinical Impression: Benign paroxysmal positional vertigo Qualifiers: Laterality: unspecified laterality Qualified Code(s): H81.10 - Benign paroxysmal vertigo, unspecified ear Condition: Stable Prescriptions: New meclizine 25 mg tablet 25 mg PO BID PRN (Reason: dizziness) Qty: 20 0RF No Action aspirin 81 mg Tablet,Chewable 81 mg PO DAILY multivitamin Tablet 1 tab PO DAILY Discharge Orders: Discharge ED (Routine); Ordered 07/23/22 Ordered By: Brock Ford Discharge Diet: Regular Discharge Activity: Increase activity as tolerated Patient Instructions: Benign Paroxysmal Positional Vertigo (DC) Activity Restrictions/Additional Instructions: Follow-up with medical provider as directed in the next 5 to 7 days for reevaluation. Take medications as prescribed. Return to the ER or your medical provider if condition worsens. Please read and understand discharge instructions. Thank you for choosing [facility] for your healthcare needs today. Please realize this is an emergency room and that we are providing you with a medical screening exam and this may not be complete and all inclusive of all the testing and or work up that you may need to determine your ailment or severity of your illness. It is very important that you follow up as instructed or that you return to the Emergency Department should you have concerns or if your condition changes or worsens in any way. Coding Level of Care Code ED Blasting Coal Miner for Misti Greenwood
[2022-07-23 12:27] LABS: Glucose Point of Care 111 mg/dL (70-110)
[2022-07-23 12:29] LABS: Basophils % 0.2 %; Eosinophils % 0.3 %; Hematocrit 44.2 % (37.0-47.0); Hemoglobin 14.3 g/dL (11.5-15.3); Lymphocytes # 1.5 10^3/uL (0.8-4.8); Lymphocytes % 16.1 %; Mean Corpuscular HGB Conc 32.4 g/dL (30.0-36.0); Mean Corpuscular Hemoglobin 29.7 pg (28.0-34.0); Mean Corpuscular Volume 91.9 fl (81-99); Mean Platelet Volume 11.1 fL (7.4-10.4); Monocytes # 0.4 10^3/uL (0.2-0.9); Monocytes % 4.3 %; Neutrophils # 7.56 10^3/uL (1.8-7.7); Neutrophils % 78.8 %; Nucleated Red Blood Cells % 0 %; Platelet Count 241 10^3/cmm (130-400); Red Blood Count 4.81 10^6/uL (4.1-5.3); Red Cell Distribution Width 13.1 % (12.1-15.1); White Blood Count 9.6 10^3/uL (4.0-10.0)
--- NOTE | 2022-07-23 12:31 | ECG_ITS ---
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 Measurements Intervals [place] Rate: 76 P: 54 [place]: 158 QRS: 9 QRSD: 90 T: 8 QT: 373 QTc: 421 Interpretive Statements SINUS RHYTHM VOLTAGE CRITERIA FOR LVH [MEETS CRITERIA IN ONE OF: R(aVL), S(V1), R(V5), R(V5/V6)+S(V1)] Nondiagnostic T wave changes Compared to ECG 08/05/2021 18:05:24 Left ventricular hypertrophy now present Electronically Signed On 07-24-2022 2:18:12 CDT by Irina Orosco M.D. [id number]
[2022-07-23 12:33] VITALS: BP 137/85; PULSE 86; RESP 23; O2SAT 99
[2022-07-23 12:52] LABS: Troponin(5th) Baseline 6 ng/L (0-10)
[2022-07-23 13:02] LABS: Alanine Aminotransferase 35 U/L (0-33); Albumin Level 4.2 g/dL (3.5-5.2); Alkaline Phosphatase 78 U/L (35-105); Anion Gap 16.3 (5-19); Aspartate Amino Transferase 23 U/L (0-32); Blood Urea Nitrogen 10 mg/dL (6-20); Calcium 9.3 mg/dL (8.5-10.5); Carbon Dioxide 23 mmol/L (22-29); Chloride 104 mmol/L (98-107); Globulin 3.9 g/dL (1.3-4.6); Glomerular Filtration Rate 102.7 mL/min (90-130); Glucose 106 mg/dL (65-115); NT Pro B Type Natriuretic Pept 90 pg/mL (0-125); Osmolality Calculated 287 mOsm/kg (285-295); Potassium 4.3 mmol/L (3.5-5.1); Sodium 139 mmol/L (136-145); Total Bilirubin 0.4 mg/dL (0.15-1.2); Total Protein 8.1 g/dL (6.6-8.7)
[2022-07-23 13:30] VITALS: BP 144/100; PULSE 78; O2SAT 98
[2022-07-23 14:34] VITALS: BP 144/90; PULSE 79; O2SAT 96
--- NOTE | 2022-07-30 14:02 | DCPLANNER ---
emergency preparedness manager called patient due to no primary care physician. Patient stated that she does not have a primary care physician, she is going to go the [facility] clinic and be seen as on a walk in basis.
== END 2022-07-23 14:35 | disposition home or self-care (01) ==
PROVIDERS: Emergency Provider Physician Assistant
DX: H81.10 Benign paroxysmal vertigo, unspecified ear (principal); Z79.82 Long term (current) use of aspirin
CPT/HCPCS: 36415; 36416; 70450; 71045; 80053; 82962; 83880; 84484; 85025; 93005; 99285

== ENCOUNTER 2023-05-23 23:16 | Emergency (ER) | payer OTHER, SELFPAY ==
[2023-05-23 23:19] VITALS: BP 132/85; PULSE 82; RESP 18; TEMP 36.4; O2SAT 100
--- NOTE | 2023-05-23 23:23 | ECG_ITS ---
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 Measurements Intervals [place] Rate: 85 P: 53 [place]: 173 QRS: 8 QRSD: 93 T: 14 QT: 388 QTc: 464 Interpretive Statements SINUS RHYTHM VOLTAGE CRITERIA FOR LVH [MEETS CRITERIA IN ONE OF: R(aVL), S(V1), R(V5), R(V5/V6)+S(V1)] Compared to ECG 07/23/2022 12:31:44 T-wave abnormality no longer present Electronically Signed On 05-24-2023 5:54:00 RELIEF WORKER by Stu Mendez M.D. [id number]
--- NOTE | 2023-05-23 23:23 | XRR_ITS ---
PROCEDURE INFORMATION: Exam: XR Chest Exam date and time: 05/24/2023 12:05 AM Age: 57 years old Clinical indication: Chest pressure; Patient HX: C/O chest/epigastric pain; Additional info: Chest pain TECHNIQUE: Imaging protocol: Radiologic exam of the chest. Views: 1 view. COMPARISON: CR XR chest 1V portable [id number] 07/23/2022 12:13 PM FINDINGS: Lungs: Clear, symmetrically inflated lungs. Pleural spaces: No pleural effusion. No pneumothorax. Heart/Mediastinum: Cardiac silhouette is normal in size for technique. Bones/joints: Age appropriate. Gastrointestinal tract: Stomach is distended with gas and fluid. XR/XR chest 1V portable [id number] IMPRESSION: No acute cardiopulmonary abnormality.
[2023-05-23 23:40] LABS: Basophils % 0.3 %; Eosinophils # 0.1 10^3/uL (0.0-0.8); Eosinophils % 1.2 %; Hematocrit 42.6 % (36-47); Lymphocytes # 1.1 10^3/uL (0.8-4.8); Lymphocytes % 10.1 %; Mean Corpuscular HGB Conc 32.4 g/dL (30-55); Mean Corpuscular Hemoglobin 29.6 pg (27-33); Mean Corpuscular Volume 91.4 fl (85-98); Mean Platelet Volume 10.9 fL (7.4-10.4); Monocytes # 0.6 10^3/uL (0.2-0.9); Monocytes % 5.6 %; Neutrophils # 8.77 10^3/uL (1.8-7.7); Neutrophils % 82.5 %; Nucleated Red Blood Cells % 0 %; Platelet Count 238 10^3/cmm (157-399); Red Blood Count 4.66 10^6/uL (3.85-5.65); Red Cell Distribution Width 12.7 % (12.1-15.1); White Blood Count 10.63 10^3/uL (3.29-11.43)
[2023-05-23 23:57] LABS: Troponin(5th) Baseline < 6 ng/L (0-10)
--- NOTE | 2023-05-23 23:59 | ED_ITS ---
HPI - Chest Pain 2 General: Chief Complaint: Chest Pain Stated Complaint: Chest Pain Time Seen by Provider: 05/23/23 23:51 History of Present Illness: Patient presents to the ER with complaints of chest pressure all across her chest. Patient states this started earlier this afternoon and has been off and on until the last little while when has been constant. Patient states she has been belching a lot and it has helped a little bit but recently she not been able to belch and the pain is getting worse. Patient had this pain before and was worked up in a cardiac fashion and she says it ends up just being gas. Patient does not have any cardiac history. Patient's only medicine is aspirin. Patient denies any nausea vomiting diaphoresis shortness of breath fever etc. Review of Systems 2 General: Reports: 10 or more systems reviewed and unremarkable except in HPI and below PFSH ED 2 PFSH: Medical History No pertinent past medical history Surgical History History of delivery History of appendectomy No pertinent past surgical history Family History Father Heart disease Stroke Grandfather Heart disease pagternal Family/Other Heart disease Paternal uncle Grandfather Cancer Lung Mother Cancer Bone and breast Son Stroke several TIA's Denies family history of Diabetes Chronic kidney disease (CKD) Bleeding disorder Thyroid disease Social History Smoking and tobacco/nicotine status: former use of tobacco/nicotine Alcohol intake: current Alcohol intake frequency: holidays/special occasions only Substance/Drug Use: never Lives independently: Yes Marital status: Female Reproductive History: Para: 3 Spontaneous abortions: No Physical Exam 2 HENMT: COMMON NORMALS: normocephalic, atraumatic, hearing grossly normal bilaterally, external ears normal, Normal external nose present, moist oral mucous membranes and oropharynx normal HEAD & SCALP: normocephalic and atraumatic NOSE: Normal external nose present EXTERNAL EAR: Yes external ears normal Neck/C-Spine: COMMON NORMALS: no JVD Chest: COMMONS NORMALS: normal inspection of the chest and normal palpation of entire chest wall Resp: COMMON NORMALS: normal respiratory effort, No retractions, No use of accessory muscles and clear to auscultation bilaterally AUSCULTATION: clear to auscultation bilaterally Cardio: COMMON NORMALS: no JVD, regular rate, regular rhythm, S1 normal heart sound present, S2 normal heart sound present, No gallops present (Cardio), No clicks present (Cardio), No murmurs present (Cardio) and No rub (Cardio) R ATE: regular rate RHYTHM: regular rhythm HEART SOUNDS: S1 normal heart sound present and S2 normal heart sound present GI: COMMON NORMALS: Normal to inspection, nondistended, normoactive bowel sounds present, Soft to palpation, No hepatosplenomegaly present and no masses; negative for non-tender (Pain with palpation of the upper quadrants of the abdomen right greater gabino) PALPATION: Yes Soft to palpation and Yes No hepatosplenomegaly present Course 2 Vital Signs: Vital signs: Vital Signs Temperature 97.5 F L 05/23/23 23:19 Pulse Rate 100 05/24/23 03:05 Respiratory Rate 17 05/24/23 03:05 Blood Pressure 126/82 05/24/23 03:05 Pulse Oximetry 93 05/24/23 03:05 Oxygen Delivery Me thod Room Air 05/23/23 23:19 MDM - Chest Pain Medical Decision Making Discussed the case with Dr. Miramontes and lab findings, ultrasound, CT findings he says that patient needs to be worked up more thoroughly but since her is not an obvious stone per the ultrasound and the bilirubin is not elevated and the white count is normal if we get her pain under control he can see her in the clinic for further evaluation. Lab work was unremarkable except for elevated liver enzyme chest x-ray no acute abnormality, CT scan of the abdomen pelvis with contrast gallbladder distended mild wall thickening possible stone in the neck, ultrasound of the abdomen showed no cholelithiasis with only mild dilation of the extrahepatic common duct. Patient's pain was controlled with 0.5 mg of hydromorphone. Patient will be given 2 Pride and 2 Zofran to go home with a prescription for every 20 get filled in the morning. Patient will be referred to case management for consult for surgery. Differential Diagnosis Unlikely acute massive pulmonary embolism, acute respiratory failure, acute myocardial infarction, cardiac arrest or sudden cardiac Medical Records I reviewed the patient's medical records. Lab Data I reviewed the patient's lab results. 05/23/23 23:35 05/23/23 23:35 Radiology Impressions Chest X-Ray 05/23/23 23:23 IMPRESSION: No acute cardiopulmonary abnormality. Abdomen/Pelvis CT 05/24/23 00:14 IMPRESSION: Gallbladder is distended, and there is mild wall thickening. Gallbladder appears to be contracted around a low-density stone in the neck. In addition, there is mild dilation of the extrahepatic biliary tree. Punctate calcification is noted in the distal common duct. Additional low-density stones in the duct are not excluded. Consider ultrasound for evaluation. MRCP may be ultimately required for full characterization. Abdomen Ultrasound 05/24/23 01:22 IMPRESSION: 1. No findings cholelithiasis. There is mild dilation of the extrahepatic common duct. The tiny distal common duct calcifications seen on CT is not visible sonographically. 2. Echogenic liver parenchyma is most commonly associated with fatty infiltration. Laboratory Results WBC 10.63 10^3/uL (3.29-11.43) 05/23/23 23:35 RBC 4.66 10^6/uL (3.85-5.65) 05/23/23 23:35 Hgb 13.80 g/dL (11.27-16.99) 05/23/23 23:35 Hct 42.6 % (36-47) 05/23/23 23:35 MCV 91.4 fl (85-98) 05/23/23 23:35 MCH 29.6 pg (27-33) 05/23/23 23:35 MCHC 32.4 g/dL (30-55) 05/23/23 23:35 RDW 12.7 % (12.1-15.1) 05/23/23 23:35 Plt Count 238 10^3/cmm (157-399) 05/23/23 23:35 MPV 10.9 fL (7.4-10.4) H 05/23/23 23:35 Neut % (Auto) 82.5 % 05/23/23 23:35 Lymph % (Auto) 10.1 % 05/23/23 23:35 Dare % (Auto) 5.6 % 05/23/23 23:35 Eos % (Auto) 1.2 % 05/23/23 23:35 Baso % (Auto) 0.3 % 05/23/23 23:35 Neut # (Auto) 8.77 10^3/uL (1.8-7.7) H 05/23/23 23:35 Lymph # (Auto) 1.1 10^3/uL (0.8-4.8) 05/23/23 23:35 Dare # (Auto) 0.6 10^3/uL (0.2-0.9) 05/23/23 23:35 Eos # (Auto) 0.1 10^3/uL (0.0-0.8) 05/23/23 23:35 Baso # (Auto) 0.0 10^3/uL (0.0-0.1) 05/23/23 23:35 Nucleated RBC % (auto) 0 % 05/23/23 23:35 Nucleated RBCs # 0.0 /100WBC 05/23/23 23:35 Sodium 141 mmol/L (136-145) 05/23/23 23:35 Potassium 3.8 mmol/L (3.5-5.1) 05/23/23 23:35 Chloride 102 mmol/L (98-107) 05/23/23 23:35 Carbon Dioxide 29 mmol/L (22-29) 05/23/23 23:35 Anion Gap 13.8 (5-19) 05/23/23 23:35 BUN 13 mg/dL (6-20) 05/23/23 23:35 Creatinine 0.8 mg/dL (0.5-0.9) 05/23/23 23:35 GFR Calculation 73.4 mL/min (90-130) L 05/23/23 23:35 Glucose 174 mg/dL (65-115) H 05/23/23 23:35 Calculated Osmolality 296 mOsm/kg (285-295) H 05/23/23 23:35 Calcium 9.4 mg/dL (8.5-10.5) 05/23/23 23:35 Total Bilirubin 1.0 mg/dL (0.15-1.2) 05/23/23 23:35 AST 469 U/L (0-32) H 05/23/23 23:35 ALT 303 U/L (0-33) H 05/23/23 23:35 Alkaline Phosphatase 154 U/L (35-105) H 05/23/23 23:35 Troponin T Baseline < 6 ng/L (0-10) 05/23/23 23:35 Troponin T 120 Minute 6.15 ng/L (0-10) 05/24/23 01:20 Delta Troponin T 0.25752 ABS# (0-10) 05/24/23 01:20 Total Protein 7.9 g/dL (6.6-8.7) 05/23/23 23:35 Albumin 4.5 g/dL (3.5-5.2) 05/23/23 23:35 Globulin 3.4 g/dL (1.3-4.6) 05/23/23 23:35 All radiology interpretation(s) finalized by discharge EKG Data EKG 1: I personally reviewed and interpreted this EKG as follows: EKG interpretation date: 05/23/23 EKG interpretation time: 23:24 Prior EKG tracings: not available for review Interpretation: EKG showed ventricular rate 85 beats minute, NE interval 173, QRS 93, QTc 464, sinus rhythm, EKG 2: I personally reviewed and interpreted this EKG as follows: EKG interpretation date: 05/24/23 EKG interpretation time: 01:30 Prior EKG tracings: available for review Interpretation: Ventricular rate 90 bpm, NE interval 182, QRS duration 86, QTc of 414, sinus rhythm, Discharge Plan Discharge Patient Disposition: Home Clinical Impression: Right upper quadrant abdominal pain, Biliary colic, Elevated liver enzymes Condition: Stable Prescriptions: New hydrocodone-acetaminophen 5-325 mg tablet 1 tab PO Q6H PRN (Reason: pain) Qty: 14 0RF ondansetron HCl 4 mg tablet 4 mg PO QID PRN (Reason: nausea and vomiting) Qty: 14 0RF No Action aspirin 81 mg Tablet,Chewable 81 mg PO DAILY multivitamin Tablet 1 tab PO DAILY Discharge Orders: Discharge ED (Routine); Ordered 05/24/23 Ordered By: Jose Dolan Patient Instructions: Abdominal Pain (ED), Opioid Safety, Pain Management Activity Restrictions/Additional Instructions: Your workup in ER showed your liver enzymes are elevated secondary to gallbladder dysfunction. We discussed your case with the surgeon on-call who says he will be glad to see you on an outpatient basis and further workup your gallbladder. He will be sent home with pain medicine and nausea medicine. You have been referred to case management to set up the appointment with the surgeon. They should be calling you within the next several days. If you have not heard from them please feel free to call. Coding Level of Care Code ED Furnace Liner for Misti Greenwood
[2023-05-24 00:10] LABS: Alanine Aminotransferase 303 U/L (0-33); Albumin Level 4.5 g/dL (3.5-5.2); Alkaline Phosphatase 154 U/L (35-105); Anion Gap 13.8 (5-19); Aspartate Amino Transferase 469 U/L (0-32); Blood Urea Nitrogen 13 mg/dL (6-20); Calcium 9.4 mg/dL (8.5-10.5); Carbon Dioxide 29 mmol/L (22-29); Chloride 102 mmol/L (98-107); Globulin 3.4 g/dL (1.3-4.6); Glomerular Filtration Rate 73.4 mL/min (90-130); Glucose 174 mg/dL (65-115); Osmolality Calculated 296 mOsm/kg (285-295); Potassium 3.8 mmol/L (3.5-5.1); Sodium 141 mmol/L (136-145); Total Protein 7.9 g/dL (6.6-8.7)
--- NOTE | 2023-05-24 00:14 | CTR_ITS ---
PROCEDURE INFORMATION: Exam: CT Abdomen And Pelvis With Contrast Exam date and time: 05/24/2023 12:59 AM Age: 57 years old Clinical indication: Pain and abnormal findings; Abnormal lab test; Elevated liver enzymes; Abdominal pain; Prior surgery; Surgery date: 6+ months; Surgery type: Appy. Csection; Patient HX: C/O epigastric pain with elevated lfts; Additional info: Epigastric pain, elevated lfts TECHNIQUE: Imaging protocol: Computed tomography of the abdomen and pelvis with contrast. Radiation optimization: All CT scans at this facility use at least one of these dose optimization techniques: automated exposure control; mA and/or kV adjustment per patient size (includes targeted exams where dose is matched to clinical indication); or iterative reconstruction. Contrast material: OMNI 350; Contrast volume: 100 ml; Contrast route: INTRAVENOUS (IV); COMPARISON: US abdomen limited [id number] 08/05/2021 4:28 PM RADIATION DOSE METRICS: Total DLP (mGy-cm): 552.42 FINDINGS: Lungs: Clear basilar lung parenchyma. Pleural spaces: No pleural fluid. Heart: Normal heart size. Liver: Normal configuration. Homogeneous parenchyma. Gallbladder and bile ducts: Postprandial gallbladder appears contracted around a low density stone in the gallbladder neck. Gallbladder is distended. Mild gallbladder wall thickening. A punctate calcified density is noted in the distal common bile duct. Additional low-density stones in the duct are not excluded. Maximal diameter 9 mm. Pancreas: Normal. No ductal dilation. Spleen: Normal. No splenomegaly. Adrenal glands: Normal configuration. Kidneys and ureters: Kidneys enhance symmetrically and demonstrate no evidence of mass, calculus, obstruction, or inflammation. Stomach and bowel: Postprandial stomach. Normal caliber small bowel. Distal colonic diverticulosis without evidence of acute diverticulitis. Appendix: Appendix is surgically absent. Intraperitoneal space: No free air. No significant fluid collection. Vasculature: Mild aortoiliac calcific atherosclerosis without aneurysm. Lymph nodes: No enlarged lymph nodes. Urinary bladder: Unremarkable as visualized. Reproductive: Physiologic appearance for age. Bones/joints: No fracture or destructive lesion. Soft tissues: Unremarkable. CT/CT abdomen pelvis w con* [id number] IMPRESSION: Gallbladder is distended, and there is mild wall thickening. Gallbladder appears to be contracted around a low-density stone in the neck. In addition, there is mild dilation of the extrahepatic biliary tree. Punctate calcification is noted in the distal common duct. Additional low-density stones in the duct are not excluded. Consider ultrasound for evaluation. MRCP may be ultimately required for full characterization.
[2023-05-24] MEDS: iohexol 350 mg/mL 500 mL Btl (per mL) IV (01:02)
[2023-05-24] MEDS: ondansetron 2 mg/ML SDV 2 mL 4 MG IVP (01:13)
[2023-05-24] MEDS: ketorolac 30 mg/mL INJ IVP (01:15)
--- NOTE | 2023-05-24 01:22 | USR_ITS ---
PROCEDURE INFORMATION: Exam: US Abdomen, Limited; Right Upper Quadrant Exam date and time: 05/24/2023 1:48 AM Age: 57 years old Clinical indication: Abdominal pain; Epigastric; Prior surgery; Surgery date: 6+ months; Surgery type: Unsure of dates. Appendectomy; Additional info: Ruq pain, abnormal CT, choledocholitiasas TECHNIQUE: Imaging protocol: Real time ultrasound of the abdomen with image documentation. Limited exam focused on the right upper quadrant. COMPARISON: US abdomen limited [id number] 08/05/2021 4:28 PM FINDINGS: Liver: Echogenic liver. Gallbladder: No gallbladder wall thickening. Biliary ducts: Common duct measures 7 mm at the pam hepatis. Tiny common duct stones seen on prior CT is not sonographically visible. No additional ductal stones are evident. Pancreas: Visualized pancreas is unremarkable. Right kidney: Normal. No mass. No hydronephrosis. US/US abdomen limited [id number] IMPRESSION: 1. No findings cholelithiasis. There is mild dilation of the extrahepatic common duct. The tiny distal common duct calcifications seen on CT is not visible sonographically. 2. Echogenic liver parenchyma is most commonly associated with fatty infiltration.
--- NOTE | 2023-05-24 01:30 | ECG_ITS ---
[facility] Test Date: 2023-05-24 Pat Name: Rose Marie Medrano Department: Room: Gender: Female Puller Machine: : [id number] Requested By: Harmony Thompson Order Number: [id number] Rebeca MD: Stu Mendez M.D. Measurements Intervals [place] Rate: 90 P: 52 MD: 182 QRS: 11 QRSD: 86 T: 17 QT: 366 QTc: 449 Interpretive Statements SINUS RHYTHM POSSIBLE LEFT ATRIAL ENLARGEMENT [-0.1mV P-WAVE IN V1/V2] POSSIBLE LEFT VENTRICULAR HYPERTROPHY [VOLTAGE CRITERIA PLUS LAE OR QRS WIDENING] Compared to ECG 05/23/2023 23:24:13 No significant changes Electronically Signed On 05-24-2023 5:59:07 HORTICULTURAL TECHNICAL OFFICER by Stu Mendez M.D. [email or web address] health mi[facility] [id number]
[2023-05-24 01:52] LABS: Troponin 5 2HR 6.15 ng/L (0-10); Troponin 5 2HR Delta 0.15001 ABS# (0-10)
[2023-05-24] MEDS: HYDROmorphone 1 mg/mL INJ 1 mL 0.5 MG IVP (02:31)
--- NOTE | 2023-05-24 02:57 | PC.NURSE ---
Per Dr Dolan's orders pt was sent home with 2 tabs of Hydrocodone 5/325 and t tabs of Zofran 4mg.
[2023-05-24 03:05] VITALS: BP 126/82; PULSE 100; RESP 17; O2SAT 93
--- NOTE | 2023-05-26 18:24 | DCPLANNER ---
Message was sent to general surgery on 05/26/23 at 9724. Clinic to contact patient
== END 2023-05-24 03:06 | disposition home or self-care (01) ==
PROVIDERS: Physician Assistant; Emergency Provider Emergency Medicine
DX: R10.11 Right upper quadrant pain (principal); K80.50 Calculus of bile duct without cholangitis or cholecystitis without obstruction; R74.8 Abnormal levels of other serum enzymes; Z79.82 Long term (current) use of aspirin; Z87.891 Personal history of nicotine dependence
CPT/HCPCS: 36415; 71045; 74177; 76705; 80053; 84484; 85025; 93005; 96374; 96375; 99285; J1170; J1885; J2405; Q9967

== ENCOUNTER 2023-06-24 08:19 | Day surgery (SDC) | payer OTHER, SELFPAY ==
[2023-06-24] VITALS (10 sets, daily range): BP systolic 132–166; BP diastolic 85–113; PULSE 64–109; RESP 13–23; TEMP 36.1–36.4; O2SAT 90–100; BMI 27.4
--- NOTE | 2023-06-24 | XR_ITS ---
WS: [id number] INTRAOPERATIVE TECHNIQUE: 3 Spot fluoroscopic images for intraoperative purposes. FLUOROSCOPY TIME: 6.6 seconds CLINICAL INFORMATION: ARMANDO PICS COMPARISON: None. FINDINGS: Intraoperative cholangiogram. Injection of the cystic duct. Normal filling of the common bile duct an d common hepatic duct with reflux into the intrahepatic ducts which are normal in appearance. Distal common bile duct is normal with normal spillage into the duodenum. IMPRESSION: Images obtained for intraoperative purposes.
--- NOTE | 2023-06-24 09:01 | W.PM.OPSUD ---
Surgery/Procedure H&P Update DATE OF PROCEDURE: June 24, 2023 DATE H&P PERFORMED: 06/02/23 H&P UPDATE INFORMATION: I have reviewed H&P completed within last 30 days, I have examined patient prior to procedure and No changes to prior documentation PLANNED PROCEDURE: Operation Date: 06/24/23 10:00 Proposed Procedures p [id number] christiano white w/IOC K80.20(Not Applicable) - Ace Hendrix, DO
[2023-06-24] MEDS: sodium chloride 0.9% 1,000 ML 30 ML IV (09:14)
--- NOTE | 2023-06-24 09:18 | ANES.PREANE2 ---
Pre-Anesthetic Assessment Height/Weight: Height 1.63 m Weight 72.575 kg Temp Pulse Resp BP Pulse Ox O2 Del Method 97.2 F L 86 18 157/89 98 Room Air 06/24/23 08:52 06/24/23 08:52 06/24/23 08:52 06/24/23 08:52 06/24/23 08:52 06/24/23 08:53 Operation Date: 06/24/23 10:00 Proposed Procedures p [id number] lap cindy w/IOC K80.20(Not Applicable) - Ace Hendrix DO Familial anesthetic complications: None Was Beta Donna taken within 24 hours: N/A Was Clonidine taken within 24 hours: N/A Last intake: Intake Last Liquid Date 06/23/23 Last Liquid Time 22:00 Last Solid Date 06/23/23 Last Solid Time 20:30 Social No alcohol and No tobacco Exam alert, oriented x 3, clear to auscultation bilaterally and regular rate & rhythm Airway Dentition: chipped and other (missing,informed of risk of dental damage) CV/HEM Hypertension (white coat) Anesthetic Plan ASA status: 1 Anesthesia: General Risk of > 500 ml blood loss (7ml/kg in children): No Medications/Allergies Home Medications Medication Instructions Recorded Confirmed Last Taken Type aspirin 81 mg chewable tablet 81 mg PO DAILY 08/05/21 06/24/23 06/23/23 History multivitamin 1 tab PO DAILY 07/23/22 06/24/23 06/23/23 History hydrocodone 5 mg-acetaminophen 325 1 tab PO Q6H PRN pain #14 tabs 05/24/23 06/24/23 Unknown Rx mg tablet Allergies Allergy/AdvReac Type Severity Reaction Status Date / Time ondansetron Allergy Intermediate ADR-Dizzine Verified 06/24/23 08:50 ss Current Medications Generic Name Dose Route Start Last Admin Trade Name Freq PRN Reason Stop Dose Admin Sodium Chloride 1,000 mls @ 30 mls/hr 06/24/23 08:45 06/24/23 09:14 Sodium Chloride 0.9% IV 06/25/23 08:44 30 mls/hr .Q24H AICHA Administration PFSH Anesthesia Medical History No pertinent past medical history Surgical History History of delivery History of appendectomy No pertinent past surgical history Family History Father Heart disease Stroke Grandfather Heart disease pagternal Family/Other Heart disease Paternal uncle Grandfather Cancer Lung Mother Cancer Bone and breast Son Stroke several TIA's Denies family history of Diabetes Chronic kidney disease (CKD) Bleeding disorder Thyroid disease Social History Smoking and tobacco/nicotine status: former use of tobacco/nicotine Alcohol intake: current Alcohol intake frequency: holidays/special occasions only Substance/Drug Use: never Lives independently: Yes Marital status: Female Reproductive History Para: 3 Spontaneous abortions: No Data Anesthesia Cardiac Studies: No Data to Display
[2023-06-24] MEDS: ceFAZolin 2,000 MG in sodium chloride 0.9% (plus) 50 ML 100 MG IV (09:34)
[2023-06-24] MEDS: lidocaine-epi 2% PF 1:200,000 20 mL SDV XX (10:02)
[2023-06-24] MEDS: iohexol 300 mg/mL 50 mL Btl 25 ML XX (10:05)
--- NOTE | 2023-06-24 10:28 | PM.OP ---
Operative Report Date of procedure: June 24, 2023 Pre-op diagnosis: Symptomatic cholelithiasis Extrahepatic biliary dilatation Post-op diagnosis: same Procedure done: Laparoscopic cholecystectomy with intraoperative cholangiogram Implants: None Specimens removed/disposition: Gallbladder Surgeon: Ace Hendrix DO Anesthesia: General and Local Estimated blood loss (mL): 5 Complications: None apparent Findings: No duct obstruction Brief History: This very pleasant 57-year-old female with symptomatic cholelithiasis. Ultrasound also identified extrahepatic biliary ductal dilatation. Laparoscopic cholecystectomy with intraoperative cholangiogram was indicated. The risk and benefits were explained and documented. Procedure: Patient was wheeled into the operative room and placed on the OR table in a supine position. Abdomen was inspected prepped and draped in usual sterile fashion. Time-out was performed and all present were in agreement. A 15 blade scalp was used to make a stab incision in the left upper quadrant and intra-abdominal insufflation was achieved using a Veress needle. After localizing the tissue incisions were made and a 5 millimeter trocar was placed into the umbilicus as well as 2 in the right upper quadrant. A 12 millimeter trocar was placed in the epigastrium. Gallbladder was grasped and elevated. The triangle of Calot was carefully dissected using blunt dissection and electrocautery until the triangle of Calot clearly identified. The cystic duct was clipped proximally and partially ligated just distal to this. The cholangiocatheter was fed into the cystic duct and clipped into place. A cholangiogram was performed and a large obstructing distal common bile duct stone was seen.the cholangiocatheter was removed. The cystic duct was double clipped distally. The duct was then ligated proximally. The cystic artery was doubly clipped and ligated. The gallbladder was then removed from the liver bed using electrocautery. The gallbladder was removed from the abdomen using an Endo-Catch bag through the epigastric incision. The liver bed was inspected and no bleeding was controlled with electrocautery. A 19 Armenian Berhane drain was placed through the right upper quadrant port and into Morison's pouch. This was sewn into place with 2-0 silk. The abdomen was irrigated and suctioned. All ports removed. Skin was washed and dried. Incisions were closed with 4-0 Monocryl in a subcuticular interrupted fashion. Skin glue was applied. Patient tolerated the procedure well.
[2023-06-24] MEDS: fentaNYL 50 mcg/mL INJ 2mL IVP (10:46)
[2023-06-24] MEDS: HYDROcodone-acetaminophen 7.5-325 mg Tablet 1 TAB PO (11:36)
--- NOTE | 2023-06-24 11:55 | ANE.PACU2 ---
Inpatient post-anesthesia follow up: Airway intact: Yes Vital signs: Temperature 97.0 F Pulse Rate 65 Respiratory Rate 16 Blood Pressure 134/89 Pulse Oximetry 97 Oxygen Delivery Me thod Room Air Oxygen Flow Rate 3 Fraction of Inspir ed Oxygen Hydration adequate: Yes Nausea and vomiting: No Pain level: 1 Mental status: Baseline
== END 2023-06-24 11:55 | disposition home or self-care (01) ==
PROVIDERS: PCP Family Medicine; Visit Provider Surgery
PROC: 0FT44ZZ Resection of Gallbladder, Percutaneous Endoscopic Approach (ICD-10-PCS; CPT 47562; principal; 2023-06-24 09:50)
DX: K80.10 Calculus of gallbladder with chronic cholecystitis without obstruction (principal); I10 Essential (primary) hypertension; Z87.891 Personal history of nicotine dependence; Z79.82 Long term (current) use of aspirin
CPT/HCPCS: 47562; 74300; 76000; 88304; J0690; J2250; J2704; J3010; J3490; J7030; Q9967

== ENCOUNTER → 2023-12-02 11:07 | Outpatient (BNVA) | payer OTHER, SELFPAY | PROVIDERS: PCP Family Medicine; Visit Provider Family Medicine | DX: Z12.4 Encounter for screening for malignant neoplasm of cervix (principal) | CPT/HCPCS: 87624 ==

== ENCOUNTER 2023-12-22 12:34 | Outpatient (RCR) | payer OTHER, SELFPAY | END 2024-01-12 23:59 | disposition home or self-care (01) | LOC: SPT 12:34 | PROVIDERS: PCP Family Medicine; Visit Provider Family Medicine | DX: R32 Unspecified urinary incontinence (principal); N81.9 Female genital prolapse, unspecified | CPT/HCPCS: 97110; 97161; 97530 ==

== ENCOUNTER 2024-01-13 06:00 | Outpatient (RCR) | payer OTHER, SELFPAY | END 2024-02-12 23:59 | disposition home or self-care (01) | LOC: SPT 06:00 | PROVIDERS: PCP Family Medicine; Visit Provider Family Medicine | DX: R32 Unspecified urinary incontinence (principal); N81.9 Female genital prolapse, unspecified | CPT/HCPCS: 97110; 97530 ==

== ENCOUNTER 2024-02-13 06:00 | Outpatient (RCR) | payer OTHER, SELFPAY | END 2024-03-13 23:59 | disposition home or self-care (01) | LOC: SPT 06:00 | PROVIDERS: PCP Family Medicine; Visit Provider Family Medicine | DX: R32 Unspecified urinary incontinence (principal) | CPT/HCPCS: 97110 ==

== ENCOUNTER 2024-03-14 06:00 | Outpatient (RCR) | payer OTHER, SELFPAY | END 2024-04-05 23:59 | disposition home or self-care (01) | LOC: SPT 06:00 | PROVIDERS: PCP Family Medicine; Visit Provider Family Medicine | DX: R32 Unspecified urinary incontinence (principal) | CPT/HCPCS: 97110 ==